=== PATIENT | female | born 1955 | race Caucasian/White ===

== ENCOUNTER → 2020-07-18 | Outpatient (CLI) | payer OTHER ==
[2020-07-18 13:08] LABS: HEMOGLOBIN 13.4 gm/dl (12.3-15.3); RED BLOOD COUNT 4.12 M/UL (4.00-5.10); WHITE BLOOD COUNT 9.1 K/UL (4.5-11.0)
[2020-07-19 09:16] LABS: HBSAG SCREEN Negative (Negative); HCV AB <0.1 (0.0-0.9); HEP B CORE AB, TOT Negative (Negative)
[2020-07-20 04:12] LABS: VITAMIN D, 25-HYDROXY 29.6 ng/mL (30.0-100.0)
[2020-07-23 00:09] LABS: QUANTIFERON MITOGEN VALUE >10.00 IU/mL (.); QUANTIFERON NIL VALUE 0.06 IU/mL (.); QUANTIFERON TB1 AG VALUE 0.12 IU/mL (.); QUANTIFERON TB2 AG VALUE 0.15 IU/mL (.); QUANTIFERON-TB GOLD PLUS Negative (Negative)
== END ==
LOC: LAB 11:24
PROVIDERS: Internal Medicine
DX: M32.9 Systemic lupus erythematosus, unspecified (principal); M25.50 Pain in unspecified joint; Z92.29 Personal history of other drug therapy; Z79.899 Other long term (current) drug therapy; E55.9 Vitamin D deficiency, unspecified; L65.9 Nonscarring hair loss, unspecified
CPT/HCPCS: 36415; 80053; 82607; 82746; 85025; 86704; 86803; 87340

== ENCOUNTER → 2020-11-20 | Outpatient (CLI) | payer OTHER | LOC: KOH-I 08:30 | DX: R10.11 Right upper quadrant pain (principal); Z90.49 Acquired absence of other specified parts of digestive tract | CPT/HCPCS: 76705 ==